=== PATIENT | male | born 1975 | race African-American/Black ===

== ENCOUNTER 2023-05-06 10:38 | Emergency (ER) | payer MEDICARE, OTHER, SELFPAY ==
[2023-05-06] MEDS ORDERED: Ketorolac Tromethamine 30 MG/ML VIAL ONE (11:18)
[2023-05-06] MEDS ORDERED: diphenhydrAMINE 50 MG/ML VIAL ONE (11:18)
[2023-05-06] MEDS ORDERED: Metoclopramide HCl 10 MG/2 ML VIAL ONE (11:18)
[2023-05-06] MEDS ORDERED: predniSONE 20 MG TAB ONE (12:42)
[2023-05-06] MEDS ORDERED: Metoclopramide HCl 10 MG TAB ONE (12:42)
== END 2023-05-06 13:28 | disposition home or self-care (01) ==
LOC: CSHERS 10:38
DX: R51.9 Headache, unspecified (principal); I13.2 Hypertensive heart and chronic kidney disease with heart failure and with stage 5 chronic kidney disease, or end stage renal disease; I50.9 Heart failure, unspecified; N18.6 End stage renal disease; Z86.73 Personal history of transient ischemic attack (TIA), and cerebral infarction without residual deficits
CPT/HCPCS: 70450; 96372; J1200; J1885; J2765; J7512

== ENCOUNTER 2023-05-08 17:07 | Observation (INO) | payer MEDICARE, SELFPAY ==
[2023-05-08] MEDS ORDERED: Acetaminophen 500 MG TAB ONE (18:11)
[2023-05-08 18:35] LABS: #Basophils 0.1 10x3/uL (0.0-0.2); #Eosinphils 0.1 10x3/uL (0.0-0.5); #Monocytes 0.4 10x3/uL (0.0-1.1); #Neutrophils 3.2 10x3/uL (1.5-8.4); %Lymphocytes 26.3 % (18.0-47.0); %Monocytes 7.1 % (0.0-10.0); %Neutrophils 63.4 % (40.0-75.0); Hematocrit 38.7 % (38.8-50.0); Hemoglobin 12.2 g/dL (13.5-17.5); Mean Corpuscular HGB CONC 31.5 g/dL (32.0-36.0); Mean Corpuscular Hemoglobin 29.3 pg (27.0-33.0); Mean Platelet Volume 9.7 fl (7.4-10.4); Platelet Count 175 10x3/uL (150-450); RBC Distribution Width 16.1 % (11.5-14.5); Red Blood Cell (RBC) Count 4.16 10x6/uL (4.32-5.72); White Blood Cell (WBC) Count 5.1 10x3/uL (3.5-10.5)
[2023-05-08 18:51] LABS: ALT (SGPT) 11 U/L (8-55); AST (SGOT) 17 U/L (5-34); Albumin 4.5 g/dL (3.5-5.0); Alkaline Phosphatase 47 U/L (40-110); Anion Gap 21 mmol/L (10-20); BUN (Urea Nitrogen) 32 mg/dL (8.9-20.6); Bilirubin, Total 0.7 mg/dL (0.2-1.2); Calc. Creatinine Clearance 0 mL/min (70-130); Calcium 8.9 mg/dL (7.8-10.44); Carbon Dioxide 22 mmol/L (22-29); Chloride 98 mmol/L (98-107); Estimated GFR 7; Glucose 171 mg/dL (70-105); Lipase 82 U/L (8-78); Protein, Total 7.5 g/dL (6.0-8.3); Sodium 137 mmol/L (136-145)
[2023-05-08] MEDS ORDERED: Aspirin Chewable 81 MG TAB ONE (19:18)
[2023-05-08] MEDS ORDERED: Ondansetron ODT 4 MG TAB ONE (19:19)
[2023-05-08] MEDS ORDERED: Morphine 4 MG/ML VIAL ONE (19:19)
[2023-05-08] MEDS ORDERED: Calcium Carbonate 500 MG ChewTAB PO PRN (20:11)
[2023-05-08] MEDS ORDERED: Acetaminophen 325 MG TAB PO PRN (20:11)
[2023-05-08] MEDS ORDERED: Ondansetron PF 4 MG/2 ML Vial IVP PRN (20:11)
[2023-05-08] MEDS ORDERED: Senokot S 8.6-50 MG TAB PO PRN (20:11)
[2023-05-08] MEDS ORDERED: Guaifenesin DM 100-10/5 ML UDCUP PO PRN (20:11)
[2023-05-08] MEDS ORDERED: Amlodipine 5 MG TAB PO SCH (21:30)
[2023-05-08] MEDS ORDERED: Amlodipine 5 MG TAB ONE (21:42)
[2023-05-08] MEDS ORDERED: Nitroglycerin 2% Ointment 1 INCH/1 GM Packet ONE (22:18)
[2023-05-08] MEDS ORDERED: hydrALAZINE 20 MG/ML VIAL SLOW IVP PRN (23:41)
[2023-05-09 01:06] VITALS: BMI 30.9
[2023-05-09] MEDS: Labetalol HCl 200 MG TAB PO SCH ×3 (01:22→20:50)
[2023-05-09] MEDS: Heparin 5,000 UNITS/ML VIAL SC SCH ×4 (01:24→20:50)
[2023-05-09] MEDS: Atorvastatin Calcium 40 MG TAB PO SCH ×2 (01:25→20:50)
[2023-05-09 04:15] LABS: Anion Gap 20 mmol/L (10-20); BUN (Urea Nitrogen) 33 mg/dL (8.9-20.6); Calc. Creatinine Clearance 11 mL/min (70-130); Calcium 8.4 mg/dL (7.8-10.44); Carbon Dioxide 23 mmol/L (22-29); Chloride 98 mmol/L (98-107); Estimated GFR 7; Glucose 116 mg/dL (70-105); Potassium 4.3 mmol/L (3.5-5.1); Sodium 137 mmol/L (136-145)
[2023-05-09 04:54] LABS: Cardiac Risk 2.4 (Less than 4.5); Cholesterol 109 mg/dl (< 200 Desired); HDL Cholesterol 46 mg/dL (>60 Neg Risk); LDL Cholesterol, Calculated 47 mg/dL; Triglycerides 79 mg/dL (Less than 150)
[2023-05-09] MEDS: Folic Acid/Vit B Comp W-C PO SCH (11:05)
[2023-05-09] MEDS: Aspirin 81 mg Enteric Coated Tablet PO SCH (11:05)
[2023-05-09] MEDS: Clopidogrel Bisulfate 75 MG TAB PO SCH (11:05)
[2023-05-09] MEDS: NIFEdipine XL 30 MG TAB PO SCH (11:06)
[2023-05-09] MEDS: Polyethylene Glycol 3350 17 GM Packet PO SCH (11:08)
[2023-05-09 13:42] LABS: Bilirubin Neg (Negative); Blood, Urine 25 (Negative); Clarity Clear (Clear); Glucose, Urine (Dipstick) Normal (Negative); Ketone, Urine Negative (Negative); Leukocyte Negative (Negative); Nitrite Negative (Negative); Protein, Urine (Dipstick) 100 mg/dl (Neg-Trace); Urobilinogen Normal mg/dL (Less than 2)
[2023-05-09] MEDS: HYDROcodone/Acetaminophen 5/325 mg Tablet PO PRN ×2 (13:46→18:46)
[2023-05-09 13:59] LABS: Bacteria/HPF Rare-Few HPF (None Seen); RBC/HPF None Seen HPF (0-3); Squamous Epithelial 0-3 HPF (0-3); WBC/HPF 0-3 HPF (0-3)
[2023-05-09 14:16] LABS: Hemoglobin A1c 4.8 % (4.0-6.0)
[2023-05-10 08:37] LABS: #Basophils 0.1 10x3/uL (0.0-0.2); #Eosinphils 0.2 10x3/uL (0.0-0.5); #Monocytes 0.4 10x3/uL (0.0-1.1); #Neutrophils 2.3 10x3/uL (1.5-8.4); %Basophils 1.1 % (0.0-2.0); %Eosinophils 3.7 % (0.0-6.0); %Lymphocytes 35.7 % (18.0-47.0); %Monocytes 8.6 % (0.0-10.0); %Neutrophils 50.7 % (40.0-75.0); Hematocrit 37.2 % (38.8-50.0); Hemoglobin 11.7 g/dL (13.5-17.5); Mean Corpuscular HGB CONC 31.5 g/dL (32.0-36.0); Mean Corpuscular Hemoglobin 29.3 pg (27.0-33.0); Mean Corpuscular Volume 93.2 fl (81.2-95.1); Mean Platelet Volume 9.7 fl (7.4-10.4); Platelet Count 166 10x3/uL (150-450); RBC Distribution Width 15.7 % (11.5-14.5); Red Blood Cell (RBC) Count 3.99 10x6/uL (4.32-5.72); White Blood Cell (WBC) Count 4.6 10x3/uL (3.5-10.5)
[2023-05-10] MEDS: Polyethylene Glycol 3350 17 GM Packet PO SCH (08:42)
[2023-05-10] MEDS: Clopidogrel Bisulfate 75 MG TAB PO SCH (08:50)
[2023-05-10] MEDS: Aspirin 81 mg Enteric Coated Tablet PO SCH (08:50)
[2023-05-10] MEDS: Heparin 5,000 UNITS/ML VIAL SC SCH ×2 (08:51→14:43)
[2023-05-10] MEDS: Folic Acid/Vit B Comp W-C PO SCH (08:51)
[2023-05-10] MEDS: NIFEdipine XL 30 MG TAB PO SCH (08:51)
[2023-05-10] MEDS: HYDROcodone/Acetaminophen 5/325 mg Tablet PO PRN (08:51)
[2023-05-10] MEDS: Labetalol HCl 200 MG TAB PO SCH (08:51)
[2023-05-10 08:52] LABS: Anion Gap 21 mmol/L (10-20); BUN (Urea Nitrogen) 40 mg/dL (8.9-20.6); Calc. Creatinine Clearance 10 mL/min (70-130); Calcium 8.5 mg/dL (7.8-10.44); Carbon Dioxide 22 mmol/L (22-29); Chloride 101 mmol/L (98-107); Estimated GFR 6; Glucose 80 mg/dL (70-105); Potassium 4.3 mmol/L (3.5-5.1); Sodium 140 mmol/L (136-145)
[2023-05-10 09:29] VITALS: TEMP 98.3
[2023-05-10 11:06] LABS: HBSAg Index 0.21 S/CO (0-0.99); Hep B Surf Ag Non-Reactive S/CO (NonReactive)
[2023-05-10 11:30] VITALS: BP 137/80
[2023-05-10 16:00] LABS: HBSAB Concentration Less than 8.00 mIU/mL; Hep B Core Total Ab Non-Reactive (NonReactive); Hep B Core Total Index 0.08 S/CO (0-0.79); Hep B Surf AB Non-Reactive (NonReactive); Hep C IgG Ab Non-Reactive S/CO (NonReactive); Hep C Index 0.06 S/CO (0-0.79)
== END 2023-05-10 16:30 | disposition home or self-care (01) ==
LOC: CSHERS 17:07 → CSHTELE 20:11 → INTOOBSV 05-09 00:57 → CSHTELE 05-09 00:57 → UNDOADMOB 05-09 00:57
PROVIDERS: ADMIT Student in an Organized Health Care Education/Training Program; ATTEND Hospitalist
DX: I13.2 Hypertensive heart and chronic kidney disease with heart failure and with stage 5 chronic kidney disease, or end stage renal disease (principal); N18.6 End stage renal disease; I50.9 Heart failure, unspecified; I10 Essential (primary) hypertension; D63.1 Anemia in chronic kidney disease; E78.5 Hyperlipidemia, unspecified; Z99.2 Dependence on renal dialysis; F01.50 Vascular dementia, unspecified severity, without behavioral disturbance, psychotic disturbance, mood disturbance, and anxiety; F32.A Depression, unspecified; H54.61 Unqualified visual loss, right eye, normal vision left eye; K59.00 Constipation, unspecified; I63.439 Cerebral infarction due to embolism of unspecified posterior cerebral artery; Z79.899 Other long term (current) drug therapy; Z79.82 Long term (current) use of aspirin
CPT/HCPCS: 36415; 36416; 70450; 70496; 70551; 74176; 80048; 80053; 80061; 81001; 83036; 83690; 84443; 85025; 85652; 86704; 90935; 93005; 93306; 96372; 96374; G0257; G0378; J1644; J2270; Q0162

== ENCOUNTER 2023-05-10 17:38 | Emergency (ER) | payer MEDICARE | END 2023-05-10 19:11 | disposition left against medical advice (07) | LOC: CSHERS 17:38 | DX: Z53.21 Procedure and treatment not carried out due to patient leaving prior to being seen by health care provider (principal) ==